=== PATIENT | male | born 1995 | race Caucasian/White ===

== ENCOUNTER 2021-10-26 12:34 | Emergency (ER) | payer OTHER, BC ==
[~2021-10-26] VITALS: Ht 172.7 cm; Wt 63.5 kg
[~2021-10-26 12:34] MED LIST: LORA2L PO; SULTRIDS PO
[2021-10-26] MEDS ORDERED: AMOCLA875 PO (14:02)
== END 2021-10-26 14:13 | disposition home or self-care (01) ==
LOC: ER 12:34
DX: S01.25XA Open bite of nose, initial encounter (principal); W54.0XXA Bitten by dog, initial encounter
CPT/HCPCS: 70160; 90471; 90714; 99283-25; A9270